=== PATIENT | female | born 1990 | race Caucasian/White ===

== ENCOUNTER 2018-04-26 09:42 | Inpatient (IN) | payer BC, OTHER ==
[2018-04-26] MEDS ORDERED: TERBUTALINE 1 MG/ML VIAL SQ PRN (10:14)
[2018-04-26] MEDS ORDERED: METHYLERGONOVINE 0.2 MG/ML 1 ML AMP IM PRN (10:14)
[2018-04-26] MEDS ORDERED: LIDOCAINE 1% (PF) 10 MG/ML (30 ML SDV) SQ PRN (10:14)
[2018-04-26] MEDS ORDERED: OXYTOCIN 10 UNIT/ML 1 ML VIAL IM PRN (10:14)
[2018-04-26] MEDS ORDERED: CARBOPROST TROMETHAMINE 250 MCG/ML 1 ML AMP IM PRN (10:14)
[2018-04-26] MEDS: LACTATED RINGERS 1,000 ML IV SCH ×2 (10:29→22:36)
[2018-04-26 10:35] VITALS: BMI 28.5
[2018-04-26 10:54] LABS: INR 0.9 (<1.2); Partial Thromboplastin Time 22.3 sec (22.0-30.0); Prothrombin Time 9.3 sec (9.0-12.0)
[2018-04-26 10:57] LABS: Uric Acid 5.7 mg/dL (3.7-7.4)
[2018-04-26] MEDS ORDERED: OXYTOCIN 20 UNITS/1000 ML NS 1,000 ML IV SCH ×2 (11:00→19:30)
[2018-04-26 11:08] LABS: Basophils % (A) 0 %; Eosinophils # (A) 0.1 k/uL (0-0.7); Eosinophils % (A) 1 %; HCT 36.1 % (34.0-46.0); HGB 12.4 gm/dL (11.4-16.0); Lymphocytes # (A) 1.6 k/uL (1.0-4.8); Lymphocytes % (A) 15 %; MCH 30.2 pg (25.0-35.0); MCHC 34.2 g/dL (31.0-37.0); MCV 88.2 fL (80.0-100.0); Mean Platelet Volume 8.6; Monocytes # (A) 0.5 k/uL (0-1.0); Monocytes % (A) 4 %; Neutrophils # (A) 8.1 k/uL (1.3-7.7); Neutrophils % (A) 78 %; Platelet Count 243 k/uL (150-450); RBC 4.09 m/uL (3.80-5.40); RDW 13.4 % (11.5-15.5); WBC 10.5 k/uL (3.8-10.6)
--- NOTE | 2018-04-26 11:23 | P.HPOB ---
History of Present Illness H&P Date: 04/26/18 Chief Complaint: 37-5/7 weeks, increasing -induced hypertension The patient is a 27-year-old 3 para 0020 admitted at 37-6/7 weeks as established by last menstrual period and confirmed by 10 week ultrasound. She is admitted with fairly significantly increased blood pressures initially noted in the office 2 days ago at which time they did return to normal at rest in the range of approximately 130s over 80s. She had labs drawn for preeclampsia at that time which returned essentially normal with one single elevated liver function test. She was asked to return to the office for repeat blood pressure check today, 2 days after previous presentation, at which time she was found to have blood pressures in the range of 150/100 which remained relatively sustained. Nonstress test was reassuring both 2 days ago and today anterior on labor and delivery. Her has otherwise been uncomplicated though she is rubella nonimmune. Group B strep status is negative. Cervix is favorable for induction of labor. Obstetrical history: 3 para 0020 with 2 previous miscarriages not apparently requiring D&C. Current statistics are listed in history present illness. EDC of 05/12/2018 was established by last menstrual period and confirmed by 10 week ultrasound. Laboratory workup demonstrates a blood type of O+ with a negative antibody screen. Rubella status is nonimmune. Remainder of the laboratory workup was within normal limits. One hour Glucola was normal and group B strep status is negative. [employer] Siding [employer] history: Unremarkable with no history of any infections to include STDs. Review of Systems Review of systems is confined to history of present illness. Past Medical History Past Medical History: No Reported History Additional Past Medical History / Comment(s): pih History of Any Multi-Drug Resistant Organisms: None Reported Past Surgical History: No Surgical Hx Reported Past Anesthesia/Blood Transfusion Reactions: No Reported Reaction Additional Past Anesthesia/Blood Transfusion Reaction / Comment(s): NO HX OF TRANSFUSION Past Psychological History: No Psychological Hx Reported Smoking Status: Never smoker Past Alcohol Use History: None Reported Past Drug Use History: None Reported - Past Family History Father Family Medical History: No Reported History Medications and Allergies Home Medications Medication Instructions Recorded Confirmed Type Ferrous Sulfate [Feosol] 325 mg PO DAILY 04/26/18 04/26/18 History Pnv,Calcium 72/Iron/Folic Acid 1 tab PO HS 04/26/18 04/26/18 History [ Plus Tablet] Allergies Allergy/AdvReac Type Severity Reaction Status Date / Time No Known Allergies Allergy Verified 08/22/16 18:45 Exam Vital Signs Temp Pulse Pulse Resp BP BP Pulse Ox 04/26/18 10:35 96.7 F L 78 16 167/99 97 04/26/18 10:11 96.7 F L 78 18 167/99 98 Intake and Output 04/25/18 04/26/18 04/26/18 22:59 06:59 14:59 Other: Weight 92.986 kg In general, this is a well-developed, well-nourished white female in no acute distress. Her heart has a regular rhythm and rate without murmur. Her lungs are clear to auscultation bilaterally in all shelley. Her abdomen is gravid, nondistended, has normal active bowel sounds, is soft, nontender, and without any palpable masses aside from uterine fundus. Her extremities without any cyanosis, clubbing, though there is 1+ bilateral lower extremity edema to the mid hurt[place]. They're nontender to palpation bilaterally. Digital cervical examination demonstrates her cervix to be 2-3 cm dilated, approximately 50% effaced, with the vertex in presentation at -2 station. Artificial rupture of membranes is carried out demonstrating clear fluid. Results Abnormal Lab Results - Last 24 Hours (Table) 04/26/18 Range/Units 10:15 AST 41 H (14-36) U/L ALT 61 H (9-52) U/L Assessment and Plan (1) Term Current Visit: Yes Status: Acute Code(s): Z34.80 - ENCOUNTER FOR SUPRVSN OF NORMAL , UNSP TRIMESTER SNOMED Code(s): 16196500 (2) induced hypertension Current Visit: Yes Status: Acute Code(s): O13.9 - GESTATIONAL HTN W/O SIGNIFICANT PROTEINURIA, UNSP TRIMESTER SNOMED Code(s): 24665655 Plan: The patient is admitted for active management and induction of labor given the diagnosis of mild preeclampsia or -induced hypertension. Her laboratory workup thus far is consistent with this with to mildly elevated liver functions and the remainder of the labs are pending at this time. Blood pressures are beginning to come in to a more acceptable range with initial pressures being in the range of 160/100 but now in the range of 140s over 80. She has had Pitocin augmentation started and undergone artificial rupture of membranes. She will have close maternal and surveillance and expectant management will be practiced. She is a good candidate for either IV or epidural analgesia, whichever she may choose.
[2018-04-26] MEDS ORDERED: BUTORPHANOL 1 MG/ML 1 ML VIAL IV PRN (15:51)
[2018-04-26] MEDS ORDERED: WITCH HAZEL 1 EACH MED..PAD TOPICAL PRN (19:25)
[2018-04-26] MEDS ORDERED: ACETAMINOPHEN TAB 325 MG TAB PO PRN (19:25)
[2018-04-26] MEDS ORDERED: HYDROCORTISONE 2.5% RECTAL CREAM 30 GM TUBE RECTAL PRN (19:25)
[2018-04-26] MEDS ORDERED: diphenhydrAMINE 25 MG CAP PO PRN (19:25)
[2018-04-26] MEDS ORDERED: diphenhydrAMINE 50 MG CAP PO PRN (19:25)
[2018-04-26] MEDS ORDERED: diphenhydrAMINE 50 MG/ML 1 ML VIAL IVP PRN ×2 (19:25)
[2018-04-26] MEDS ORDERED: LANOLIN CREAM 5 GM TUBE TOPICAL PRN (19:25)
[2018-04-26] MEDS ORDERED: SIMETHICONE 80 MG CHEWABLE PO PRN (19:25)
[2018-04-26] MEDS ORDERED: IBUPROFEN 600 MG TAB PO PRN (19:25)
[2018-04-26] MEDS ORDERED: BENZOCAINE/MENTHOL SPRAY 1 GM/SPRAY AEROSOL TOPICAL PRN (19:25)
[2018-04-26] MEDS ORDERED: ZOLPIDEM 5 MG TAB PO PRN (19:25)
--- NOTE | 2018-04-26 19:36 | P.PROBDLV ---
Vaginal Delivery Note - . Vaginal Delivery Note: This is a very pleasant 19-year-old 3 para 00-0 admitted at 37-6/7 weeks with left muscle. Equal to a 10 week ultrasound. Patient was noted to have significantly increased blood pressures initially in the office 2 days ago at which time she returned to a normal blood pressure range 130s/80s she followed up in the office today blood pressures were elevated once again 140s/ 100s decision was then made for induction of labor secondary to preeclampsia. Patient was started on Pitocin induction of labor, and amniotomy was performed and clear fluid was obtained. Patient progressed through labor getting Stadol 1. Patient progressed to complete, and had a normal spontaneous vaginal delivery of a viable male at 1852. Just prior to delivery and episiotomy was preformed secondary to superior tearing by the urethra. Consent was obtained from the patient prior to episiotomy. Weight of 6 lbs. 7 oz. and Apgars of 9 and 10 at one and 5 minutes respectively. Afterwards the placenta was delivered spontaneously intact with a three-vessel cord. Membranous cord insertion was noted. Mother and infant tolerated delivery well and are resting comfortably.
[2018-04-26] MEDS: SENNOSIDES-DOCUSATE SODIUM 1 EACH TAB PO SCH (22:34)
[2018-04-26] MEDS ORDERED: MEASLES-MUMPS-RUBELLA VACC/PF 12,500 UNIT/0.5 ML VIAL SQ ONE (22:56)
[2018-04-26] MEDS: PRENATAL VIT-IRON-FOLIC ACID 1 EACH CAP PO SCH (23:02)
[2018-04-27] MEDS: LACTATED RINGERS 1,000 ML IV SCH (04:17)
[2018-04-27 08:02] LABS: Basophils % (A) 0 %; Eosinophils # (A) 0.2 k/uL (0-0.7); Eosinophils % (A) 1 %; HCT 31.4 % (34.0-46.0); HGB 10.5 gm/dL (11.4-16.0); Lymphocytes # (A) 1.3 k/uL (1.0-4.8); Lymphocytes % (A) 10 %; MCH 29.5 pg (25.0-35.0); MCHC 33.3 g/dL (31.0-37.0); MCV 88.8 fL (80.0-100.0); Mean Platelet Volume 8.2; Monocytes # (A) 0.5 k/uL (0-1.0); Monocytes % (A) 4 %; Neutrophils # (A) 10.9 k/uL (1.3-7.7); Neutrophils % (A) 83 %; Platelet Count 230 k/uL (150-450); RBC 3.54 m/uL (3.80-5.40); RDW 13.7 % (11.5-15.5); WBC 13.1 k/uL (3.8-10.6)
[2018-04-27] MEDS: SENNOSIDES-DOCUSATE SODIUM 1 EACH TAB PO SCH ×2 (09:00→23:35)
--- NOTE | 2018-04-27 09:55 | P.PNOBGVD ---
Subjective - Subjective Principal diagnosis: PPD 1 spontaneous vaginal delivery, preeclampsia Interval history: Patient has done well overnight. She is ambulating and voiding without difficulty. She is tolerating a regular diet without nausea or vomiting. Blood pressures were noted to be 140s over 80s to 90s overnight. Patient denies headache right upper quadrant pain. She states her lochia is minimal at this time. She is breast-feeding with some difficulty. She does wish discharge home today if possible Patient reports: Reports appetite normal, Reports voiding normally, Reports pain well controlled, Reports ambulating normally [place]: doing well, nursing well Objective - Latest Vital Signs Latest vital signs: Vital Signs Temp Pulse Pulse Resp BP BP Pulse Ox 04/27/18 04:00 98.1 F 87 16 136/84 97 04/27/18 00:00 98.6 F 81 16 144/81 04/26/18 21:15 81 16 146/72 04/26/18 20:45 84 16 142/66 04/26/18 20:15 90 16 168/74 04/26/18 20:00 85 16 133/66 04/26/18 19:45 84 16 146/81 04/26/18 19:30 90 16 144/74 04/26/18 19:15 97.6 F 91 16 150/73 04/26/18 10:35 96.7 F L 78 16 167/99 97 04/26/18 10:11 96.7 F L 78 18 167/99 98 Intake and Output 04/26/18 04/27/18 04/27/18 22:59 06:59 14:59 Other: # Voids 1 0 - Exam Lungs: bilateral: normal Extremities: Present: edema Abdomen: Present: normal appearance, soft Uterus: Present: firm - Labs Labs: Abnormal Lab Results - Last 24 Hours (Table) 04/26/18 04/26/18 04/27/18 Range/Units 10:15 10:15 07:48 WBC 13.1 H (3.8-10.6) k/uL RBC 3.54 L (3.80-5.40) m/uL Hgb 10.5 L (11.4-16.0) gm/dL Hct 31.4 L (34.0-46.0) % Neutrophils # 8.1 H 10.9 H (1.3-7.7) k/uL AST 41 H (14-36) U/L ALT 61 H (9-52) U/L Assessment and Plan (1) Status post normal vaginal delivery Current Visit: Yes Status: Acute Code(s): DDN1770 - SNOMED Code(s): 480453591 (2) induced hypertension Current Visit: Yes Status: Acute Code(s): O13.9 - GESTATIONAL HTN W/O SIGNIFICANT PROTEINURIA, UNSP TRIMESTER SNOMED Code(s): 08863712 (3) Rubella non-immune status, antepartum Current Visit: Yes Status: Acute Code(s): O99.89 - OTH DISEASES AND CONDITIONS COMPL PREG/CHLDBRTH; Z28.3 - UNDERIMMUNIZATION STATUS SNOMED Code(s ): 277449649 (4) Term Current Visit: Yes Status: Acute Code(s): Z34.80 - ENCOUNTER FOR SUPRVSN OF NORMAL , UNSP TRIMESTER SNOMED Code(s): 26550523 Plan: We'll continue to observe blood pressures this morning, recheck liver function tests. Patient does wish discharge home if her clinical situation appears to be improving we'll consider later this evening.
[2018-04-27 11:11] LABS: ALT 65 U/L (9-52); AST 53 U/L (14-36)
[2018-04-27] MEDS: PRENATAL VIT-IRON-FOLIC ACID 1 EACH CAP PO SCH (23:35)
[2018-04-28 08:07] LABS: HCT 30.5 % (34.0-46.0); HGB 10.5 gm/dL (11.4-16.0); MCHC 34.6 g/dL (31.0-37.0); MCV 89.6 fL (80.0-100.0); Mean Platelet Volume 7.9; Platelet Count 216 k/uL (150-450); RDW 13.9 % (11.5-15.5); WBC 11.3 k/uL (3.8-10.6)
[2018-04-28 08:21] LABS: ALT 71 U/L (9-52); AST 56 U/L (14-36); Blood Urea Nitrogen 13 mg/dL (7-17)
--- NOTE | 2018-04-28 10:31 | P.PNOBGVD ---
Subjective - Subjective Principal diagnosis: PPD 2 , Preeclampsia Interval history: This is a very pleasant 19-year-old 1 now para 1 that was admitted for preeclampsia subsequently had a normal spontaneous vaginal delivery of a viable male . Patient is being watched for blood pressure and increasing LFTs. LFTs continued to rise this morning on AM draw with some elevations in blood pressure overnight and this morning. 140-150's/80-90's.Patient denies headache right upper quadrant pain or visual changes at this time. Overall she states she is feeling well. She is breast-feeding and pumping, lochia is minimal. She is tolerating a regular diet without nausea or vomiting. She is ambulating and voiding without difficulty. Patient reports: Reports appetite normal, Reports voiding normally, Reports pain well controlled, Reports ambulating normally : doing well Objective - Latest Vital Signs Latest vital signs: Vital Signs Temp Pulse Pulse Resp BP BP 04/28/18 08:52 98.5 F 83 14 146/90 04/28/18 04:00 84 154/84 04/28/18 00:00 98.3 F 80 16 134/80 04/27/18 20:00 97.4 F L 84 18 134/76 04/27/18 16:00 97.9 F 88 18 152/84 04/27/18 13:20 146/94 04/27/18 13:00 143/99 04/27/18 12:15 165/109 - Exam Extremities: Present: normal Abdomen: Present: normal appearance, soft Uterus: Present: firm - Labs Labs: Abnormal Lab Results - Last 24 Hours (Table) 04/27/18 04/28/18 04/28/18 Range/Units 10:51 07:48 07:48 WBC 11.3 H (3.8-10.6) k/uL RBC 3.40 L (3.80-5.40) m/uL Hgb 10.5 L (11.4-16.0) gm/dL Hct 30.5 L (34.0-46.0) % AST 53 H 56 H (14-36) U/L ALT 65 H 71 H (9-52) U/L Assessment and Plan (1) Status post normal vaginal delivery Current Visit: Yes Status: Acute Code(s): JEP9400 - SNOMED Code(s): 913742075 (2) induced hypertension Current Visit: Yes Status: Acute Code(s): O13.9 - GESTATIONAL HTN W/O SIGNIFICANT PROTEINURIA, UNSP TRIMESTER SNOMED Code(s): 53205186 (3) Rubella non-immune status, antepartum Current Visit: Yes Status: Acute Code(s): O99.89 - OTH DISEASES AND CONDITIONS COMPL PREG/CHLDBRTH; Z28.3 - UNDERIMMUNIZATION STATUS SNOMED Code(s ): 905932739 (4) Term Current Visit: Yes Status: Acute Code(s): Z34.80 - ENCOUNTER FOR SUPRVSN OF NORMAL , UNSP TRIMESTER SNOMED Code(s): 83897161 Plan: Given that her labs continued to rise in her blood pressure seems to be elevated will start labetalol 100 twice daily, will recheck CBC, LFTs around 1700. We will encourage the patient to stay overnight as her labs continued to worsen versus improved. Patient states understanding all questions are answered with patient and significant other will reevaluate after 1700 labs
[2018-04-28] MEDS: LABETALOL 100 MG TAB PO SCH ×2 (10:49→20:59)
[2018-04-28] MEDS: SENNOSIDES-DOCUSATE SODIUM 1 EACH TAB PO SCH ×2 (10:49→20:15)
[2018-04-28 16:42] VITALS: RESP 16
[2018-04-28 17:23] LABS: HCT 31.2 % (34.0-46.0); HGB 10.6 gm/dL (11.4-16.0); MCH 30.8 pg (25.0-35.0); MCV 90.7 fL (80.0-100.0); Mean Platelet Volume 7.6; Platelet Count 227 k/uL (150-450); RBC 3.45 m/uL (3.80-5.40); RDW 14.2 % (11.5-15.5); WBC 12.5 k/uL (3.8-10.6)
[2018-04-28 17:32] LABS: ALT 70 U/L (9-52); AST 53 U/L (14-36)
[2018-04-28] MEDS: PRENATAL VIT-IRON-FOLIC ACID 1 EACH CAP PO SCH (21:00)
[2018-04-29 08:15] VITALS: BP 147/95; PULSE 73; TEMP 98.5
[2018-04-29] MEDS: SENNOSIDES-DOCUSATE SODIUM 1 EACH TAB PO SCH (08:17)
[2018-04-29 09:00] LABS: Basophils % (A) 0 %; Eosinophils # (A) 0.4 k/uL (0-0.7); Eosinophils % (A) 3 %; HCT 34.6 % (34.0-46.0); HGB 11.4 gm/dL (11.4-16.0); Lymphocytes # (A) 1.7 k/uL (1.0-4.8); Lymphocytes % (A) 14 %; Mean Platelet Volume 7.4; Monocytes # (A) 0.3 k/uL (0-1.0); Monocytes % (A) 3 %; Neutrophils # (A) 9.8 k/uL (1.3-7.7); Neutrophils % (A) 79 %; Platelet Count 267 k/uL (150-450); WBC 12.4 k/uL (3.8-10.6)
[2018-04-29 09:19] LABS: ALT 81 U/L (9-52); AST 70 U/L (14-36)
[2018-04-29] MEDS: LABETALOL 100 MG TAB PO SCH (09:20)
--- NOTE | 2018-04-29 11:08 | P.DS ---
Providers Date of admission: 04/26/18 09:42 Expected date of discharge: 04/29/18 Attending physician: Susan Draper Primary care physician: Stated None - Discharge Diagnosis(es) (1) Term Current Visit: Yes Status: Acute (2) induced hypertension Current Visit: Yes Status: Acute (3) Elevated liver function tests Current Visit: Yes Status: Acute (4) Status post normal vaginal delivery Current Visit: Yes Status: Acute Hospital Course: The patient is a 27-year-old 3 para 0020 admitted at 37-6/7 weeks by good dating parameters. She is admitted with fairly rapid onset of increasing blood pressures making the diagnosis of -induced hypertension and probable early preeclampsia. She was found also to have liver functions being slightly elevated above normal with a normal platelet count and no protein in her urine. In either case, she was admitted from the office for induction of labor. She had Pitocin augmentation started followed by artificial rupture of membranes demonstrating clear fluid. She made fairly slow progress through the latent phase of labor but then quickly progressed through the active phase of labor to complete where after she pushed to a normal spontaneous vaginal delivery of a viable 6 lbs. 7 oz. baby boy with Apgars of 9 at 1 minute and 10 at 5 minutes respectively. Her course was essentially unremarkable though her liver functions remained elevated throughout the remainder of her stay raising the question as to whether the finding is perhaps incidental. Her blood pressures remained relatively elevated as well and she was placed on labetalol 100 mg twice daily. The remainder of her hospital stay her blood pressures were in the range of 130s and 140s over 80s to 90. The patient denied any symptoms of any kind to include headache or scotomata. Swelling was fairly minimal and confined to her feet all alone at the time of discharge. She was deemed stable for discharge on day #3 and was discharged home to follow-up in our office in 2 days for blood pressure check and repeat labs, 2 weeks for the same, and 6 weeks routinely. Discharge instructions included calling for any significantly increased bleeding or foul-smelling lochia, significantly increased fever abdominal pain, perineal complaints, breast complaints, or anything else that concerned her. She is additionally to remain at relative bed rest until her blood pressure and liver function situation is cleared up. She understood her instructions and agrees to follow up as noted above. Discharge medications included continued vitamins as she has opted to breast-feed. She additionally was given a prescription for labetalol 100 mg twice daily, #60 dispensed with 5 refills. She was otherwise to use [id number] analgesic pain medications. Maternal blood type is O+ and rubella status is immune. Procedures: #1. Pitocin induction #2. Artificial rupture of membranes #3. Normal spontaneous vaginal delivery #4. Second-degree midline episiotomy and repair Patient Condition at Discharge: Stable Plan - Discharge Summary Discharge Rx Participant: No New Discharge Prescriptions: No Action Pnv,Calcium 72/Iron/Folic Acid [ Plus Tablet] 1 tab PO HS Ferrous Sulfate [Feosol] 325 mg PO DAILY Discharge Medication List Ferrous Sulfate [Feosol] 325 mg PO DAILY 04/26/18 [History] Pnv,Calcium 72/Iron/Folic Acid [ Plus Tablet] 1 tab PO HS 04/26/18 [ History] Follow up Appointment(s)/Referral(s): Bandar Levine MD [STAFF PHYSICIAN] - 3 Days Discharge Disposition: HOME SELF-CARE
== END 2018-04-29 11:10 | disposition home or self-care (01) | DRG 775 ==
LOC: 4FBP 09:42
PROVIDERS: ADMIT Obstetrics & Gynecology Obstetrics; ATTEND Obstetrics & Gynecology Obstetrics
PROC: 3E033VJ Introduction of Other Hormone into Peripheral Vein, Percutaneous Approach (ICD-10-PCS; principal; 2018-04-26)
PROC: 0W8NXZZ Division of Female Perineum, External Approach (ICD-10-PCS; principal; 2018-04-26)
PROC: 10907ZC Drainage of Amniotic Fluid, Therapeutic from Products of Conception, Via Natural or Artificial Opening (ICD-10-PCS; principal; 2018-04-26)
PROC: 10E0XZZ Delivery of Products of Conception, External Approach (ICD-10-PCS; principal; 2018-04-26)
DX: O13.4 Gestational [pregnancy-induced] hypertension without significant proteinuria, complicating childbirth (principal); Z37.0 Single live birth; Z3A.37 37 weeks gestation of pregnancy; Z28.3 Underimmunization status
CPT/HCPCS: 82565; 84450; 84460; 84520; 84550; 85025; 85027; 85610; 85730; 88307; 90471; 90707

== ENCOUNTER 2021-05-31 06:36 | Inpatient (IN) | payer BC, OTHER ==
[2021-05-31] MEDS ORDERED: METHYLERGONOVINE 0.2 MG/ML 1 ML AMP IM PRN (06:47)
[2021-05-31] MEDS ORDERED: OXYTOCIN 10 UNIT/ML 1 ML VIAL IM PRN (06:47)
[2021-05-31] MEDS ORDERED: CARBOPROST TROMETHAMINE 250 MCG/ML 1 ML AMP IM PRN (06:47)
[2021-05-31] MEDS ORDERED: TERBUTALINE 1 MG/ML VIAL SQ PRN (06:47)
[2021-05-31] MEDS ORDERED: LIDOCAINE 0.5% (PF) 5 MG/ML (50 ML SDV) SQ PRN (06:47)
[2021-05-31] MEDS ORDERED: OXYTOCIN 30 UNITS/500 ML NS 30 UNIT in SALINE 1 500ML.BAG IV SCH ×2 (07:00→14:00)
[2021-05-31] MEDS: LACTATED RINGERS 1,000 ML IV SCH ×2 (07:04→12:34)
[2021-05-31 07:25] LABS: Basophils % (A) 0 %; Eosinophils # (A) 0.1 k/uL (0-0.7); Eosinophils % (A) 1 %; HCT 37.1 % (34.0-46.0); HGB 12.6 gm/dL (11.4-16.0); Hypochromasia Slight; Lymphocytes # (A) 1.6 k/uL (1.0-4.8); Lymphocytes % (A) 16 %; MCH 32.2 pg (25.0-35.0); MCV 94.7 fL (80.0-100.0); Mean Platelet Volume 8.6; Monocytes # (A) 0.4 k/uL (0-1.0); Monocytes % (A) 4 %; Neutrophils % (A) 77 %; Platelet Count 267 k/uL (150-450); Poikilocytosis Slight; RBC 3.92 m/uL (3.80-5.40); WBC 10.3 k/uL (3.8-10.6)
[2021-05-31] MEDS ORDERED: BUTORPHANOL 1 MG/ML 1 ML VIAL IV PRN (08:39)
--- NOTE | 2021-05-31 08:43 | P.HPOB ---
History of Present Illness H&P Date: 05/31/21 Chief Complaint: 39+ weeks, elective induction The patient is a 30-year-old 5 para 1031 admitted at 39+ weeks as established by seven-week ultrasound. She is admitted for elective induction with all signs reassuring, category 1 heart rate tracing present. Her has been entirely uncomplicated and group B strep status is negative. Obstetrical history: [employer] 5 para 1031 with 1 term vaginal delivery without complications aside from having -induced hypertension. She did have 3 early miscarriages not requiring D&C. Current statistics are listed in history present illness. EDC of 06/01/2021 was established by seven-week ultrasound. Laboratory workup demonstrates a blood type of O+ with a negative antibody screen. Rubella status is immune. The remainder of the laboratory workup was within normal limits. One hour Glucola was normal and group B strep status is negative. Gynecologic history: Unremarkable with no history of any infections to include STDs. Past Medical History Past Medical History: No Reported History Additional Past Medical History / Comment(s): pih History of Any Multi-Drug Resistant Organisms: None Reported Past Surgical History: No Surgical Hx Reported Past Anesthesia/Blood Transfusion Reactions: No Reported Reaction Additional Past Anesthesia/Blood Transfusion Reaction / Comment(s): NO HX OF TRANSFUSION Past Psychological History: No Psychological Hx Reported Smoking Status: Never smoker Past Alcohol Use History: None Reported Past Drug Use History: None Reported - Past Family History Father Family Medical History: No Reported History Medications and Allergies Home Medications Medication Instructions Recorded Confirmed Type Pnv,Calcium 72/Iron/Folic Acid 1 tab PO HS 04/26/18 05/31/21 History [ Plus Tablet] Aspirin 81 mg PO DAILY 05/31/21 05/31/21 History Progesterone, Micronized 1 tab PO DAILY 05/31/21 05/31/21 History [Progesterone] Allergies Allergy/AdvReac Type Severity Reaction Status Date / Time No Known Allergies Allergy Verified 08/22/16 18:45 Exam Vital Signs Temp Pulse Resp BP 05/31/21 06:43 97.1 F L 73 16 140/90 Intake and Output 05/30/21 05/31/21 05/31/21 22:59 06:59 14:59 Other: Weight 93.44 kg In general, this is a well-developed, well-nourished white female in no acute distress. Her heart has a regular rhythm and rate without murmur. Her lungs are clear to auscultation bilaterally in all [place]. Her abdomen is gravid, no ndistended, has normal active bowel sounds, soft, nontender, and without any palpable masses aside from uterine fundus. Her extremities are without any cyanosis, clubbing, or significant edema and are nontender to palpation bilaterally. Digital cervical examination demonstrates her sugars to be ap proximately 3 cm dilated, 70% effaced, the vertex in presentation at -2 station. Artificial rupture of membranes is carried out demonstrating clear fluid. Results Result Diagrams: 05/31/21 06:55 Abnormal Lab Results - Last 24 Hours (Table) 05/31/21 Range/Units 06:55 Neutrophils # 8.0 H (1.3-7.7) k/uL Assessment and Plan (1) Term Current Visit: Yes Status: Acute Code(s): Z34.80 - ENCOUNTER FOR SUPRVSN OF NORMAL , UNSP TRIMESTER SNOMED Code(s): 56429579 Plan: The patient is admitted for elective induction of labor. Pitocin augmentation has been started and she has undergone artificial rupture of membranes. She will have close maternal and surveillance and expectant management will be practiced. She is a good candidate for either IV or epidural analgesia if she so chooses.
[2021-05-31] MEDS ORDERED: ROPIVACAINE 5MG/ML 20ML VIAL ONE (12:51)
[2021-05-31] MEDS ORDERED: SODIUM CHLORIDE 0.9% 100 ML BAG ONE (12:51)
[2021-05-31] MEDS ORDERED: fentaNYL (PF) 50 MCG/ML 5 ML AMP ONE (12:51)
[2021-05-31] MEDS ORDERED: diphenhydrAMINE 50 MG CAP PO PRN (13:50)
[2021-05-31] MEDS ORDERED: diphenhydrAMINE 25 MG CAP PO PRN (13:50)
[2021-05-31] MEDS ORDERED: HYDROcodone/APAP 5-325MG 1 EACH TAB PO PRN (13:50)
[2021-05-31] MEDS ORDERED: IBUPROFEN 600 MG TAB PO PRN (13:50)
[2021-05-31] MEDS ORDERED: HYDROCORTISONE 2.5% RECTAL CREAM 30 GM TUBE RECTAL PRN (13:50)
[2021-05-31] MEDS ORDERED: diphenhydrAMINE 50 MG/ML 1 ML VIAL IVP PRN ×2 (13:50)
[2021-05-31] MEDS ORDERED: ZOLPIDEM 5 MG TAB PO PRN (13:50)
[2021-05-31] MEDS ORDERED: LANOLIN CREAM 5 GM TUBE TOPICAL PRN (13:50)
[2021-05-31] MEDS ORDERED: ACETAMINOPHEN TAB 325 MG TAB PO PRN (13:50)
[2021-05-31] MEDS ORDERED: SIMETHICONE 80 MG CHEWABLE PO PRN (13:50)
[2021-05-31] MEDS ORDERED: BENZOCAINE/MENTHOL SPRAY 1 GM/SPRAY AEROSOL TOPICAL PRN (13:50)
[2021-05-31] MEDS ORDERED: HYDROcodone/APAP 7.5-325MG 1 EACH TAB PO PRN (13:50)
--- NOTE | 2021-05-31 13:55 | P.PROBDLV ---
Vaginal Delivery Note - . Vaginal Delivery Note: The patient is a 30-year-old 5 para 1031 admitted at 39-6/7 weeks by good dating parameters. She is admitted for elective induction of labor with all signs reassuring. She was found in the late third trimester of the fetus growing at 10th percentile with all other findings normal. Group B strep status is negative. On labor and delivery, she had Pitocin started followed by artificial rupture of membranes demonstrating clear fluid. She made steady progress through the latent and active phase of labor and had an epidural catheter placed at approximate 7 cm of dilation. She then progressed quickly to complete and pushed over the course of 1 contraction to a normal spontaneous vaginal delivery of a viable 5 lbs. 8 oz. baby boy with Apgars of 9 at 1 minute and 9 at 5 minutes delivered in the direct occiput anterior position. There was a nuchal cord 1 which was reduced following delivery of the infant. The placenta was delivered somewhat manually and with maternal expulsive forces but was otherwise appeared to be grossly normal although significantly small man with one area of potential infarction as well as somewhat lacerated from the partial manual extraction. There was a grossly normal but again small three- vessel cord which was noted to have a significant velamentous insertion at the margin of the placental disc. A small second-degree midline perineal laceration was noted and was repaired in standard fashion using 3-0 chromic catgut. Estimated blood loss for the case is approximately 200 mL. There were no complications aside from the need for partial manual extraction. All sponge, instrument, and needle counts were correct. Both mother and infant are resting comfortably in recovery.
[2021-05-31] MEDS: SENNOSIDES-DOCUSATE SODIUM 1 EACH TAB PO SCH (19:26)
[2021-05-31 20:29] VITALS: RESP 16
[2021-06-01 06:11] LABS: Basophils % (A) 0 %; Eosinophils # (A) 0.1 k/uL (0-0.7); Eosinophils % (A) 1 %; HCT 34.2 % (34.0-46.0); HGB 10.7 gm/dL (11.4-16.0); Lymphocytes # (A) 1.8 k/uL (1.0-4.8); Lymphocytes % (A) 16 %; MCH 29.6 pg (25.0-35.0); MCHC 31.3 g/dL (31.0-37.0); MCV 94.7 fL (80.0-100.0); Mean Platelet Volume 8.5; Monocytes # (A) 0.5 k/uL (0-1.0); Monocytes % (A) 4 %; Neutrophils # (A) 8.6 k/uL (1.3-7.7); Neutrophils % (A) 77 %; Platelet Count 226 k/uL (150-450); RBC 3.61 m/uL (3.80-5.40); RDW 13.8 % (11.5-15.5); WBC 11.2 k/uL (3.8-10.6)
[2021-06-01 08:24] VITALS: BP 145/82; PULSE 76; TEMP 98.3
[2021-06-01] MEDS: SENNOSIDES-DOCUSATE SODIUM 1 EACH TAB PO SCH (08:25)
--- NOTE | 2021-06-01 08:33 | P.DS ---
Providers Date of admission: 05/31/21 06:36 Expected date of discharge: 06/01/21 Attending physician: Bandar Levine Primary care physician: Stated None - Discharge Diagnosis(es) (1) Term Current Visit: Yes Status: Acute (2) Status post normal vaginal delivery Current Visit: Yes Status: Acute Hospital Course: The patient is a 30-year-old 5 para 1031 admitted at 39-6/7 weeks by good dating parameters perches admitted for elective induction with all signs reassuring. Her was uncomplicated though she was felt the fetus growing at the temporal percentile at approximately 36 weeks' gestation. On labor and delivery, she had Pitocin started followed by artificial rupture of membranes for clear fluid. She progressed in the active phase of labor which time an epidural catheter was placed for analgesia and then continued to progress quickly to complete where after she pushed to a normal spontaneous vaginal delivery of a viable 5 lbs. 8 oz. baby boy with Apgars of 9 at 1 minute and 9 at 5 minutes. Her course was unremarkable vital signs being stable and her temperature was afebrile throughout. She was deemed stable for discharge on day 1 was discharged home to follow-up in the office in 6 weeks' time routinely. Discharge instructions included calling for any significantly increased bleeding or foul-smelling lochia, significantly increased fever or abdominal pain, perineal complaints, breast complaints, or anything also concerned her. She was additionally instructed to have nothing in the vagina for at least 6 weeks time to include intercourse. She understood her instructions and agrees to follow up as noted above. Discharge medications included continued vitamins as she has opted to breast-feed. She was otherwise to use [id number] analgesic pain medications as needed. Maternal blood type is O+ and rubella status is immune. Procedures: #1. Pitocin induction #2. Artificial rupture of membranes 3. Epidural analgesia 4. Normal spontaneous vaginal delivery #5. Repair of perineal laceration Patient Condition at Discharge: Stable Plan - Discharge Summary New Discharge Prescriptions: No Action Pnv,Calcium 72/Iron/Folic Acid [ Plus Tablet] 1 tab PO HS Aspirin 81 mg PO DAILY Progesterone, Micronized [Progesterone] 1 tab PO DAILY Discharge Medication List Pnv,Calcium 72/Iron/Folic Acid [ Plus Tablet] 1 tab PO HS 04/26/18 [History] Aspirin 81 mg PO DAILY 05/31/21 [History] Progesterone, Micronized [Progesterone] 1 tab PO DAILY 05/31/21 [History] Follow up Appointment(s)/Referral(s): Bandar Levine MD [STAFF PHYSICIAN] - 6 Weeks Discharge Disposition: HOME SELF-CARE
== END 2021-06-01 15:25 | disposition home or self-care (01) | DRG 805 ==
LOC: 4FBP 06:36
PROVIDERS: ADMIT Obstetrics & Gynecology; ATTEND Obstetrics & Gynecology
PROC: 10E0XZZ Delivery of Products of Conception, External Approach (ICD-10-PCS; principal; 2021-05-31)
PROC: 0KQM0ZZ Repair Perineum Muscle, Open Approach (ICD-10-PCS; 2021-05-31)
PROC: 10907ZC Drainage of Amniotic Fluid, Therapeutic from Products of Conception, Via Natural or Artificial Opening (ICD-10-PCS; 2021-05-31)
PROC: 3E033VJ Introduction of Other Hormone into Peripheral Vein, Percutaneous Approach (ICD-10-PCS; 2021-05-31)
PROC: 10H07YZ Insertion of Other Device into Products of Conception, Via Natural or Artificial Opening (ICD-10-PCS; 2021-05-31)
DX: O13.4 Gestational [pregnancy-induced] hypertension without significant proteinuria, complicating childbirth (principal); O41.1430 Placentitis, third trimester, not applicable or unspecified; Z37.0 Single live birth; O70.1 Second degree perineal laceration during delivery; O43.123 Velamentous insertion of umbilical cord, third trimester; O69.81X0 Labor and delivery complicated by cord around neck, without compression, not applicable or unspecified; Z3A.39 39 weeks gestation of pregnancy; Z79.82 Long term (current) use of aspirin
CPT/HCPCS: 85025; 86850; 86900; 86901

== ENCOUNTER 2021-09-26 17:32 | Emergency (ER) | payer BC, OTHER ==
[2021-09-26 18:52] VITALS: BP 153/94; PULSE 94; RESP 18; TEMP 99.4
--- NOTE | 2021-09-26 21:47 | ED ---
General Adult HPI - General Chief complaint: Dental/Oral Stated complaint: facial swelling/inquicker Time Seen by Provider: 09/26/21 21:35 Source: patient, RN notes reviewed, old records reviewed Mode of arrival: ambulatory Limitations: no limitations - History of Present Illness Initial comments: This is a well-appearing 31-year-old female, alert and oriented 4, with complaints of right-sided jaw swelling. Patient states that she needs a root canal was seen by dentist yesterday they prescribed her amoxicillin. She has taken 2 doses and around 5:00pm today the right side of her face became very swollen. She denies any difficulty breathing, nausea, vomiting or diarrhea. She states that she has not had any fevers. Denies any medical history, no medicines on a daily basis -: days(s) (2) Location: face (right jaw) Radiation: non-radiation Severity scale (1-10): 6 Quality: aching Consistency: constant Improves with: none Worsens with: none Associated Symptoms: denies other symptoms Treatments Prior to Arrival: other (tylenol and antibiotics (2 doses)) - Related Data Home Medications Medication Instructions Recorded Confirmed Acetaminophen [Tylenol Extra 1,000 mg PO Q6H PRN 09/26/21 09/26/21 Strength] Amoxicillin 500 mg PO TID 09/26/21 09/26/21 Previous Rx's Medication Instructions Recorded Amoxicillin/Potassium Clav 1 tab PO Q12HR #20 tab 09/26/21 [Augmentin 875-125 Tablet] Allergies Allergy/AdvReac Type Severity Reaction Status Date / Time No Known Allergies Allergy Verified 09/26/21 22:02 Review of Systems ROS Statement: Those systems with pertinent positive or pertinent negative responses have been documented in the HPI. ROS Other: All systems not noted in ROS Statement are negative. Past Medical History Past Medical History: No Reported History Additional Past Medical History / Comment(s): pih History of Any Multi-Drug Resistant Organisms: None Reported Past Surgical History: No Surgical Hx Reported Past Anesthesia/Blood Transfusion Reactions: No Reported Reaction Additional Past Anesthesia/Blood Transfusion Reaction / Comment(s): NO HX OF TRANSFUSION Past Psychological History: No Psychological Hx Reported Smoking Status: Never smoker Past Alcohol Use History: None Reported Past Drug Use History: None Reported - Past Family History Father Family Medical History: No Reported History General Exam Limitations: no limitations General appearance: alert, in no apparent distress Head exam: Present: atraumatic Eye exam: Present: normal appearance, EOMI. Absent: scleral icterus, conjunctival injection, periorbital swelling, periorbital tenderness ENT exam: Present: normal oropharynx, mucous membranes moist Expanded Mouth exam: Present: tongue normal, tongue elevation. Absent: drooling, trismus, muffled voice, laceration Teeth exam: Present: dental caries, other (Swelling along the right lower mandible no evidence of abscess.) Throat exam: normal inspection. negative: tonsillar erythema, tonsillar exudate, R peritonsillar mass, L peritonsillar mass Neck exam: Present: full ROM. Absent: tenderness, meningismus, thyromegaly Respiratory exam: Present: normal lung sounds bilaterally. Absent: respiratory distress, wheezes, rales, rhonchi, stridor Cardiovascular Exam: Present: regular rate, normal rhythm, normal heart sounds. Absent: systolic murmur, diastolic murmur, rubs, gallop, clicks GI/Abdominal exam: Present: soft, normal bowel sounds. Absent: distended, tenderness, guarding, rebound, rigid Neurological exam: Present: alert, oriented X3 Psychiatric exam: Present: normal affect, normal mood Skin exam: Present: warm, dry, intact, normal color. Absent: rash, cyanosis, diaphoretic Course Vital Signs 09/26/21 18:47 Temperature 99.4 F Pulse Rate 94 Respiratory 18 Rate Blood Pressure 153/94 O2 Sat by Pulse 97 Oximetry Medical Decision Making - Medical Decision Making Well-appearing 31-year-old female presents to the emergency room with complaints of right-sided jaw pain and swelling. Patient states she was diagnosed with a dental abscess and put on amoxicillin yesterday. She has taken 2 doses and then 5:00 today she states the swelling has increased along the right side of her jaw. She denies any difficulty in breathing, nausea vomiting or diarrhea. This does not appear to be an ALLERGIC reaction. CT of the facial bones shows subcutaneous edema and fat stranding anterior to the right mandible and right maxilla consistent with cellulitis. There is no identifiable fluid collection that is drainable and the parotid glands are normal. She is currently taking amoxicillin for dental abscess. Case discussed with Dr. Ross patient will be switched to Augmentin and directed to stop amoxicillin. Followup with her dentist and return to emergency room for any new or worsening symptoms. Disposition Clinical Impression: Cellulitis and abscess of face Disposition: HOME SELF-CARE Condition: Good Instructions (If sedation given, give patient instructions): Cellulitis (ED) Additional Instructions: Stop taking amoxicillin and start taking the Augmentin as prescribed twice a day for the next 10 days. Follow-up with your dentist as previously scheduled. Return if any new or worsening symptoms. Continue Tylenol and/or Motrin for pain. Prescriptions: Amoxicillin/Potassium Clav [Augmentin 875-125 Tablet] 1 tab PO Q12HR #20 tab Is patient prescribed a controlled substance at d/c from ED?: No Referrals: None,Stated [Primary Care Provider] - 1-2 days Time of Disposition: 22:40
--- NOTE | 2021-09-26 22:27 | CT ---
EXAMINATION TYPE: CT facial bones w con DATE OF EXAM: 09/26/2021 COMPARISON: None HISTORY: Right side facial swelling. CT DLP: 563.8 mGycm Automated exposure control for dose reduction was used. CONTRAST: Performed with IV Contrast, patient injected with 100ml mL of Isovue 300. Images obtained from the bottom of the mandible to the top of the frontal sinuses with IV contrast. The mandibular ring is intact. Temporomandibular joints are intact. Zygomatic arches appear normal. M axilla is intact. There is fairly normal aeration of the paranasal sinuses. Orbital margins are intac t. There is no evidence of retro-orbital mass. Globes are symmetric. There is subcutaneous edema anterior to the right mandible and right maxilla. There is symmetric paro tid glands. There is symmetric submandibular salivary glands. There is normal contrast opacification of the carotid arteries and jugular veins. There is no evidence of enlarged tonsils or adenoids. There is normal aeration of the mastoid sinuses . IMPRESSION: Subcutaneous edema and fat stranding anterior to the right mandible and right maxilla consistent with cellulitis. No drainable fluid collection identified. Normal parotid glands.
[2021-09-26] MEDS ORDERED: AMOXIC-POT CLAV 875-125MG 1 EACH TAB PO STA (22:40)
== END 2021-09-26 22:55 | disposition home or self-care (01) ==
LOC: EC 17:32
DX: L02.01 Cutaneous abscess of face (principal); L03.211 Cellulitis of face
CPT/HCPCS: 70487; 99283; Q9967

== ENCOUNTER 2021-09-29 12:08 | Emergency (ER) | payer BC, OTHER ==
[2021-09-29 12:22] VITALS: BP 166/97; PULSE 103; RESP 18; TEMP 97.7
[2021-09-29] MEDS: LIDOCAINE 1%-EPI 1:100,000 20 ML VIAL SQ STA (13:52)
--- NOTE | 2021-09-29 14:14 | ED ---
General Adult HPI - General Source: patient, RN notes reviewed Mode of arrival: ambulatory Limitations: no limitations <Jose Ramon Griffin - Last Filed: 09/29/21 14:45> <Beata Hamilton - Last Filed: 09/29/21 22:33> - General Chief complaint: Dental/Oral Stated complaint: Revisit/Oral Pain/Facial Swelling Time Seen by Provider: 09/29/21 13:28 - History of Present Illness Initial comments: 31-year-old female presents to the emergency room for right-sided facial swelling. Patient states that she has had a dental infection for the past 4 days. Patient has been on Augmentin. [facility] did see [facility] and they stated she needed a root canal. They want the infection taking care of first. Patient was seen here and started on Augmentin 4 days ago. She had a CAT scan at that time showing cellulitis without abscess. Patient states that it has not gotten much better and seems to be more swollen on the inside of her mouth. She denies any swelling under her tongue. She denies any difficulty swallowing or neck stiffness. Denies fevers.Patient has no other complaints at this time including shortness of breath, chest pain, abdominal pain, nausea or vomiting, headache, or visual changes. (Jose Ramon Griffin) - Related Data Home Medications Medication Instructions Recorded Confirmed Acetaminophen [Tylenol Extra 1,000 mg PO Q6H PRN 09/26/21 09/26/21 Strength] Amoxicillin 500 mg PO TID 09/26/21 09/26/21 Previous Rx's Medication Instructions Recorded Amoxicillin/Potassium Clav 1 tab PO Q12HR #20 tab 09/26/21 [Augmentin 875-125 Tablet] Amoxicillin/Potassium Clav 1 tab PO BID 4 Days #8 tab 09/29/21 [Augmentin 875-125 Tablet] Allergies Allergy/AdvReac Type Severity Reaction Status Date / Time No Known Allergies Allergy Verified 09/29/21 12:22 Review of Systems ROS Other: All systems not noted in ROS Statement are negative. <Jose Ramon Griffin - Last Filed: 09/29/21 14:45> ROS Other: All systems not noted in ROS Statement are negative. <Beata Hamilton - Last Filed: 09/29/21 22:33> ROS Statement: Those systems with pertinent positive or pertinent negative responses have been documented in the HPI. Past Medical History Past Medical History: No Reported History Additional Past Medical History / Comment(s): pih History of Any Multi-Drug Resistant Organisms: None Reported Past Surgical History: No Surgical Hx Reported Past Anesthesia/Blood Transfusion Reactions: No Reported Reaction Additional Past Anesthesia/Blood Transfusion Reaction / Comment(s): NO HX OF TRANSFUSION Past Psychological History: No Psychological Hx Reported Smoking Status: Never smoker Past Alcohol Use History: None Reported Past Drug Use History: None Reported - Past Family History Father Family Medical History: No Reported History <Jose Ramon Griffin - Last Filed: 09/29/21 14:45> General Exam Limitations: no limitations General appearance: alert, in no apparent distress Head exam: Present: atraumatic Eye exam: Present: normal appearance, PERRL, EOMI. Absent: scleral icterus, conjunctival injection ENT exam: Present: mucous membranes moist. Absent: normal oropharynx (Patient has dental abscess on right lower jaw around tooth 29) Neck exam: Present: normal inspection, full ROM. Absent: tenderness Respiratory exam: Present: normal lung sounds bilaterally. Absent: respiratory distress, wheezes Cardiovascular Exam: Present: regular rate, normal rhythm, normal heart sounds GI/Abdominal exam: Present: soft, normal bowel sounds. Absent: distended, tenderness Neurological exam: Present: alert <Jose Ramon Griffin - Last Filed: 09/29/21 14:45> Course Vital Signs 09/29/21 12:19 Temperature 97.7 F Pulse Rate 103 H Respiratory 18 Rate Blood Pressure 166/97 O2 Sat by Pulse 96 Oximetry Procedures - Incision & Drainage Consent Obtained: verbal consent Indication: abscess Site: oral Size (cm): 1 Anesthetic Used: lidocaine 1%, with epi Amount (mLs): 1 Scalpel Used: #11 I&D Drainage Obtained: Pus, Blood Patient Tolerated Procedure: well, no complications <Jose Ramon Griffin - Last Filed: 09/29/21 14:45> Medical Decision Making <Jose Ramon Griffin - Last Filed: 09/29/21 14:45> <Beata Hamilton - Last Filed: 09/29/21 22:33> - Medical Decision Making vitals are stable, patient afebrile. Abscess was incised and drained. purulent material expelled. Patient is currently breast-feeding , therefore we cannot switch her antibiotic to clindamycin. We will extend Augmentin. She will continue to follow up with dentist or return here for any worsening symptoms. (Jose Ramon Griffin) I was available for consultation in the emergency department. The history and physical exam were done by the midlevel provider. I was consulted for this patients care. I reviewed the case with the midlevel provider and based on their presentation of the patient, I agree with the assessment, medical decision making and plan of care as documented. Chart was dictated using [employer] dictation software. Attempts were made to correct any dictation errors however some typographical errors may persist. Patient was seen during a national state of emergency due to the Covid-19 pandemic. (Beata Hamilton) Disposition Is patient prescribed a controlled substance at d/c from ED?: No Time of Disposition: 14:48 <Jose Ramon Griffin - Last Filed: 09/29/21 14:45> <Beata Hamilton - Last Filed: 09/29/21 22:33> Clinical Impression: Dental abscess Disposition: HOME SELF-CARE Condition: Good Instructions (If sedation given, give patient instructions): Dental Abscess (ED) Additional Instructions: Please continue Augmentin. Follow-up with dentist. If symptoms worsen return to the emergency room. Prescriptions: Amoxicillin/Potassium Clav [Augmentin 875-125 Tablet] 1 tab PO BID 4 Days #8 tab Referrals: José Miguel Willoughby MD [REFERRING] - 1-2 days
== END 2021-09-29 15:03 | disposition home or self-care (01) ==
LOC: EC 12:08
DX: K04.7 Periapical abscess without sinus (principal)
CPT/HCPCS: 41800; 99283